=== PATIENT | male | born 1945 | race Caucasian/White ===

== ENCOUNTER 2020-05-20 13:44 | Day surgery (SDCO) | payer MEDICARE, OTHER ==
[2020-05-20 14:57] LABS: BASOPHIL 0.6 % (0-2); HCT 45.5 % (42.0-52.0); HGB 15.9 g/dl (13.2-18.0); LYMPHOCYTE 29.4 % (15-48); MCH 33.6 pg (25.0-31.0); MCHC 34.9 g/dL (32.0-36.0); MCV 96.2 fL (78.0-100.0); MONOCYTE 11.5 % (0-12); NEUTROPHIL 56.2 % (41-80); NRBC 0; PLT 235 K/uL (150-400); RBC 4.73 M/uL (4.70-6.00); RDW 12.6 % (11.5-14.0); WBC 7.9 K/uL (4.0-10.5)
[2020-05-20 15:08] LABS: INR 1.19 (0.9-1.2); PROTHROMBIN TIME 14.3 SECONDS (11.4-13.6); PTT 25.7 SECONDS (22.2-34.7)
[2020-05-20 15:21] LABS: BILIRUBIN - TOTAL 0.7 mg/dL (0.2-1.0); BUN/CREAT RATIO (CALC) 20.4 RATIO; CREATININE 1.13 mg/dL (0.67-1.17); GLOBULIN (CALCULATION) 2.9 g/dL; POTASSIUM 3.2 mmol/L (3.5-5.1); TOTAL PROTEIN 6.9 g/dL (6.4-8.2)
[2020-05-20 15:27] LABS: CKMB 6.5 ng/mL (0.0-3.6)
[2020-05-20] MEDS ORDERED: LEXAPRO 10MG TA10 MG PO (22:22)
[2020-05-20] MEDS ORDERED: VASCEPA1 GM PO (22:23)
[2020-05-20] MEDS ORDERED: LOSARTAN-HCTZ1 EAC1 PO (22:23)
[2020-05-20] MEDS ORDERED: COQ1050 MG PO (22:26)
[2020-05-20] MEDS ORDERED: COLESTID 1GM TAB1 GM PO (22:26)
[2020-05-20] MEDS ORDERED: D3 + K2 DOTS 11 EACH PO (22:27)
[2020-05-21 04:51] LABS: HCT 42.4 % (42.0-52.0); HGB 14.4 g/dl (13.2-18.0); MPV 9.9 fL (6.0-9.5); RBC 4.37 M/uL (4.70-6.00); RDW 12.8 % (11.5-14.0); WBC 6.4 K/uL (4.0-10.5)
[2020-05-21 05:22] LABS: BUN/CREAT RATIO (CALC) 21.2 RATIO; CREATININE 0.99 mg/dL (0.67-1.17); POTASSIUM 3.5 mmol/L (3.5-5.1)
--- NOTE | 2020-05-21 10:48 | NUR ---
PT REPORTS HE LIVES WITH SPOUSE; INDEPENDENT WITH ADLS PLEASE ADVISE OF ANY DISCHARGE NEEDS
[2020-05-21] MEDS ORDERED: ELIQUIS5 MG PO (12:30)
[2020-05-21] MEDS ORDERED: TOPROL XL 25MG25 MG PO (12:30)
--- NOTE | 2020-05-21 13:01 | NUR ---
PT DC'd & TAKEN TO MAIN ENTRANCE/EXIT VIA WHEELCHAIR WHERE HIS RIDE WAS WAITING @ 1250 W/ NO ISSUES.
== END 2020-05-21 12:50 | disposition other institution (70) ==
LOC: FER 13:44 → FTCU 16:08
PROVIDERS: Emergency Medicine; ADMIT Hospitalist
DX: I48.0 Paroxysmal atrial fibrillation (principal); I10 Essential (primary) hypertension; E78.5 Hyperlipidemia, unspecified; E87.6 Hypokalemia; I95.9 Hypotension, unspecified; J43.9 Emphysema, unspecified; I77.819 Aortic ectasia, unspecified site; Z85.46 Personal history of malignant neoplasm of prostate; Z87.891 Personal history of nicotine dependence; Z79.899 Other long term (current) drug therapy; Z20.822 Contact with and (suspected) exposure to COVID-19
CPT/HCPCS: 36415; 71046; 80048; 80053; 82553; 83880; 84443; 84484; 85025; 85610; 85730; 93005; G0378; J1650; U0002

== ENCOUNTER 2021-06-26 19:55 | Emergency (ER) | payer MEDICARE, OTHER ==
[~2021-06-26 19:55] MED LIST: COLESTID 1GM TAB1 GM PO; COQ1050 MG PO; D3 + K2 DOTS 11 EACH PO; ELIQUIS5 MG PO; LEXAPRO 10MG TA10 MG PO; LOSARTAN-HCTZ1 EAC1 PO; TOPROL XL 25MG25 MG PO; VASCEPA1 GM PO
[2021-06-26 21:29] LABS: BASOPHIL 0.7 % (0-2); EOSINOPHIL 3.7 % (0-7); HCT 42.1 % (42.0-52.0); HGB 14.3 g/dl (13.2-18.0); LYMPHOCYTE 34.1 % (15-48); MCH 33.6 pg (25.0-31.0); MCV 98.8 fL (78.0-100.0); MONOCYTE 11.7 % (0-12); MPV 9.8 fL (6.0-9.5); NEUTROPHIL 49.5 % (41-80); NRBC 0; PLT 220 K/uL (150-400); RBC 4.26 M/uL (4.70-6.00); RDW 13.1 % (11.5-14.0); WBC 5.9 K/uL (4.0-10.5)
[2021-06-26 21:45] LABS: BUN/CREAT RATIO (CALC) 14.7 RATIO; CREATININE 1.02 mg/dL (0.67-1.17); POTASSIUM 3.5 mmol/L (3.5-5.1)
[2021-06-26 21:48] LABS: INR 1.15 (0.9-1.2); PROTHROMBIN TIME 14.1 SECONDS (11.8-13.4); PTT 29.5 SECONDS (24.4-34.7)
== END 2021-06-26 22:48 | disposition home or self-care (01) ==
LOC: FER 19:55
PROVIDERS: Internal Medicine; Nurse Practitioner Family
DX: I83.892 Varicose veins of left lower extremity with other complications (principal); I10 Essential (primary) hypertension; I48.91 Unspecified atrial fibrillation; Z79.01 Long term (current) use of anticoagulants; Z79.899 Other long term (current) drug therapy
CPT/HCPCS: 36415; 73560; 80048; 85025; 85379; 85610; 85730; 93971

== ENCOUNTER 2021-08-27 18:56 | Emergency (ER) | payer MEDICARE, OTHER ==
[2021-08-27 20:28] LABS: BASOPHIL 0.4 % (0-2); EOSINOPHIL 1.7 % (0-7); HGB 15.3 g/dl (13.2-18.0); LYMPHOCYTE 25.5 % (15-48); MCH 34.2 pg (25.0-31.0); MCHC 34.8 g/dL (32.0-36.0); MCV 98.2 fL (78.0-100.0); MONOCYTE 12.1 % (0-12); MPV 9.6 fL (6.0-9.5); NEUTROPHIL 60.1 % (41-80); NRBC 0; PLT 211 K/uL (150-400); RBC 4.48 M/uL (4.70-6.00); RDW 13.2 % (11.5-14.0); WBC 8.3 K/uL (4.0-10.5)
[2021-08-27 20:46] LABS: ALBUMIN 3.6 g/dL (3.4-5.0); BILIRUBIN - TOTAL 0.8 mg/dL (0.2-1.0); CREATININE 1.05 mg/dL (0.67-1.17); GLOBULIN (CALCULATION) 3.1 g/dL; PHOSPHORUS 3.5 mg/dL (2.6-4.7); POTASSIUM 3.6 mmol/L (3.5-5.1); TOTAL PROTEIN 6.7 g/dL (6.4-8.2)
[2021-08-27 21:08] LABS: CORONAVIRUS 2019 SARS-COV-2 NEGATIVE (NEGATIVE); INFLUENZA A NAA NEGATIVE (NEGATIVE)
== END 2021-08-27 23:06 | disposition home or self-care (01) ==
LOC: FER 18:56
PROVIDERS: Emergency Medicine
DX: I48.91 Unspecified atrial fibrillation (principal); I10 Essential (primary) hypertension; I25.10 Atherosclerotic heart disease of native coronary artery without angina pectoris; Z79.01 Long term (current) use of anticoagulants; Z79.899 Other long term (current) drug therapy; Z20.822 Contact with and (suspected) exposure to COVID-19
CPT/HCPCS: 36415; 70450; 71045; 73090; 80053; 83735; 83880; 84100; 84484; 85025; 93005; U0002